=== PATIENT | male | born 1990 | race African-American/Black ===

== ENCOUNTER 2022-05-27 09:20 | Inpatient (IN) | payer MEDICAID, OTHER ==
[2022-05-27 09:36] VITALS: RESP 18
--- NOTE | 2022-05-27 10:12 | ED ---
Psych HPI - General Source: patient Mode of arrival: ambulatory <Afia Servin - Last Filed: 05/27/22 17:03> <Dexter Negrete - Last Filed: 05/27/22 18:40> - General Chief Complaint: Psychiatric Symptoms Stated Complaint: Mental health Time Seen by Provider: 05/27/22 09:48 - History of Present Illness Initial Comments: Patient is a 32-year-old -[place]er male presenting to the emergency room accompanied by his uncle with concerns for abnormal behavior and further evaluation. He reports that he hears a buzzing sensation in his ears but denies any auditory or visual hallucinations. He denies any who homicidal or suicidal thoughts. Family at bedside reports that he has been having with himself as if he was on a cell phone however he was not. He denies any complaints or concerns and reports that he is here for further evaluation per his family's request. He denies any chest pain, shortness of breath, abdominal pain, nausea, vomiting, lethargy, fevers or chills. He does not have any significant medical history is mental health history for bipolar disorder with anxiety but is not currently taking any prescribed medications. He does smoke marijuana regularly. (Afia Servin) - Related Data Allergies Allergy/AdvReac Type Severity Reaction Status Date / Time No Known Allergies Allergy Verified 05/27/22 18:25 Review of Systems ROS Other: All systems not noted in ROS Statement are negative. <Afia Servin - Last Filed: 05/27/22 17:03> ROS Other: All systems not noted in ROS Statement are negative. <Dexter Negrete - Last Filed: 05/27/22 18:40> ROS Statement: Those systems with pertinent positive or pertinent negative responses have been documented in the HPI. Past Medical History Past Medical History: No Reported History History of Any Multi-Drug Resistant Organisms: None Reported Additional Past Surgical History / Comment(s): tubes in ears. Past Psychological History: Anxiety, Bipolar Smoking Status: Never smoker Past Alcohol Use History: Occasional Past Drug Use History: Marijuana <Afia Servin - Last Filed: 05/27/22 17:03> General Exam Limitations: no limitations General appearance: alert, in no apparent distress Head exam: Present: atraumatic, normocephalic, normal inspection Eye exam: Present: normal appearance, PERRL, EOMI. Absent: scleral icterus, conjunctival injection, periorbital swelling ENT exam: Present: normal exam, mucous membranes moist Neck exam: Present: normal inspection, full ROM Respiratory exam: Present: normal lung sounds bilaterally. Absent: respiratory distress, wheezes, rales, rhonchi, stridor Cardiovascular Exam: Present: regular rate, normal rhythm, normal heart sounds. Absent: systolic murmur, diastolic murmur, rubs, gallop, clicks GI/Abdominal exam: Present: soft, normal bowel sounds. Absent: distended, tenderness, guarding, rebound, rigid Rectal exam: Present: deferred Extremities exam: Present: normal inspection. Absent: pedal edema, joint swelling Back exam: Present: normal inspection, full ROM Neurological exam: Present: alert Expanded Patient oriented to: Present: person, time. Absent: place Speech: Present: fluid speech Psychiatric exam: Present: agitated Expanded Focused psych exam: Present: flight of ideas Skin exam: Present: warm, dry, intact, normal color. Absent: rash <Afia Servin - Last Filed: 05/27/22 17:03> Course - Reevaluation(s) Time: 10:34 <Afia Servin - Last Filed: 05/27/22 17:03> Vital Signs 05/27/22 09:32 Temperature 98 F Pulse Rate 72 Respiratory 18 Rate Blood Pressure 161/108 O2 Sat by Pulse 99 Oximetry - Reevaluation(s) Reevaluation #1: Patient very agitated in the room hitting himself in the chest and speaking and nonsense terms. Will obtain urine drug screen and for safety patient will need to be restrained. Will give IM Ativan. (Afia Servin) Medical Decision Making <Afia Servin - Last Filed: 05/27/22 17:03> <Dexter Negrete - Last Filed: 05/27/22 18:40> - Medical Decision Making 32-year-old -[place] male presenting to the emergency room at the request for further evaluation regarding concerns of auditory hallucinations. Patient denies any AV hallucinations at this time. Denies any suicidal thoughts or homicidal thoughts. Patient's belongings removed and placed in a psychiatric counseling. Family remains at bedside. No indication for any diagnostic imaging or laboratory studies at this time will clear her from a medical standpoint he has evaluation. Initial psychiatric exam defered due to agitation and drowsiness after IM Ativan. Currently being reevaluated by EPS services with likely plan for admission to psychiatric services for paranoia and hallucinations awaiting final EPS evaluation. Report given to Dr. Negrete to follow for disposal. (Afia Servin) Patient is signed out to me pending EPS evaluation. Psychiatry evaluated the patient and determined that he does meet inpatient criteria. He will therefore be admitted to inpatient psychiatry. He is admitted in stable condition. Patient did become more agitated again, and was not responding to verbal cues. Therefore he was administered a small dose of Ativan as well as Haldol for his agitation. He did respond well to these medications. (Dextre Negrete) - Lab Data Lab Results 05/27/22 05/27/22 Range/Units 14:30 17:47 Urine Opiates Screen Not Detected (NotDetected) Ur Oxycodone Screen Not Detected (NotDetected) Urine Methadone Screen Not Detected (NotDetected) Ur Propoxyphene Screen Not Detected (NotDetected) Ur Barbiturates Screen Not Detected (NotDetected) U Tricyclic Antidepress Not Detected (NotDetected) Ur Phencyclidine Scrn Not Detected (NotDetected) Ur Amphetamines Screen Not Detected (NotDetected) U Methamphetamines Scrn Not Detected (NotDetected) U Benzodiazepines Scrn Not Detected (NotDetected) Urine Cocaine Screen Not Detected (NotDetected) U Marijuana (THC) Screen Detected H (NotDetected) Coronavirus (PCR) Not Detected (Not Detectd) Disposition <Afia Servin - Last Filed: 05/27/22 17:03> <Dexter Negrete - Last Filed: 05/27/22 18:40> Clinical Impression: Encounter for psychiatric assessment Disposition: ADMITTED IP TO THIS [facility] Condition: Stable Referrals: None,Stated [Primary Care Provider] - 1-2 days
[2022-05-27] MEDS ORDERED: LORazepam 2 MG/ML INJ IM STA ×2 (10:34→18:23)
[2022-05-27 14:56] LABS: Amphetamine Screen,Urine Not Detected (NotDetected); Barbiturate Screen,Urine Not Detected (NotDetected); Benzodiazepines Screen,Urine Not Detected (NotDetected); Cocaine Screen,Urine Not Detected (NotDetected); Methadone Screen, Urine Not Detected (NotDetected); Opiate Screen,Urine Not Detected (NotDetected); Oxycodone Screen, Urine Not Detected (NotDetected); Phencyclidine Screen,Urine Not Detected (NotDetected); Tricyclic Antidepressant,Urine Not Detected (NotDetected); Urn Cannabinoid Scrn Detected (NotDetected)
[2022-05-27] MEDS ORDERED: HALOPERIDOL LACTATE 5 MG/ML 1 ML VIAL IM STA (18:23)
[2022-05-27] MEDS ORDERED: HALOPERIDOL LACTATE 5 MG/ML 1 ML VIAL IM PRN (19:49)
[2022-05-27] MEDS ORDERED: MAG HYDROX/AL HYDROX/SIMETH 355 ML BOTTLE PO PRN (19:49)
[2022-05-27] MEDS ORDERED: ACETAMINOPHEN TAB 325 MG TAB PO PRN (19:49)
[2022-05-27] MEDS ORDERED: MAGNESIUM HYDROXIDE 2,400 MG/10 ML CUP PO PRN (19:49)
[2022-05-27] MEDS ORDERED: haloperidoL 5 MG TAB PO STA (20:33)
[2022-05-27] MEDS ORDERED: LORazepam 1 MG TAB PO STA (20:33)
[2022-05-28] MEDS ORDERED: diphenhydrAMINE 50 MG CAP PO STA (04:05)
[2022-05-28] MEDS: LORazepam 1 MG TAB PO PRN ×3 (04:41→23:56)
--- NOTE | 2022-05-28 06:21 | P.PN ---
Progress Note - Text Progress Note Date: 05/28/22 Patient is psychotic and appropriate for evaluation at this time please send for some physician once patient is more stable
[2022-05-28 07:15] LABS: Appearance,Urine Clear (Clear); Bilirubin,Urine Negative (Negative); Blood,Urine Negative (Negative); Color,Urine Colorless; Glucose,Urine (UA) Negative (Negative); Ketones,Urine Negative (Negative); Leukocyte Esterase,Urine Negative (Negative); Nitrite,Urine Negative (Negative); PH, Urine 6.5 (5.0-8.0); Protein,Urine Negative (Negative); Specific Gravity,Urine 1.001 (1.001-1.035); Urobilinogen,Urine <2.0 mg/dL (<2.0)
[2022-05-28 10:04] LABS: Basophils # (A) 0.1 k/uL (0-0.2); Basophils % (A) 1 %; Eosinophils # (A) 0.6 k/uL (0-0.7); Eosinophils % (A) 12 %; HCT 48.4 % (39.0-53.0); HGB 15.3 gm/dL (13.0-17.5); Hypochromasia Slight; Lymphocytes # (A) 1.6 k/uL (1.0-4.8); Lymphocytes % (A) 31 %; MCH 22.9 pg (25.0-35.0); MCHC 31.5 g/dL (31.0-37.0); MCV 72.7 fL (80.0-100.0); Mean Platelet Volume 8.2; Microcytosis Slight; Monocytes # (A) 0.4 k/uL (0-1.0); Monocytes % (A) 7 %; Neutrophils # (A) 2.4 k/uL (1.3-7.7); Neutrophils % (A) 47 %; Platelet Count 243 k/uL (150-450); RBC 6.66 m/uL (4.30-5.90); RDW 14.9 % (11.5-15.5); WBC 5.1 k/uL (3.8-10.6)
[2022-05-28 10:18] LABS: ALT 58 U/L (4-49); AST 40 U/L (17-59); African American GFR (CKD) >90 (>60 ml/min/1.73 sqM); Alkaline Phosphatase 82 U/L (38-126); Anion Gap 11 mmol/L; Blood Urea Nitrogen 11 mg/dL (9-20); Calcium 10.2 mg/dL (8.4-10.2); Carbon Dioxide 23 mmol/L (22-30); Chloride 104 mmol/L (98-107); Glucose 111 mg/dL (74-99); Non-African American GFR(CKD) 85 (>60 ml/min/1.73 sqM); Potassium 3.9 mmol/L (3.5-5.1); Sodium 138 mmol/L (137-145); Total Bilirubin 1.8 mg/dL (0.2-1.3); Total Protein 8.4 g/dL (6.3-8.2)
[2022-05-28] MEDS: haloperidoL 5 MG TAB PO PRN ×3 (15:49→23:56)
[2022-05-28 17:17] LABS: Chol/HDL Ratio 3.05 Ratio; LDL Cholesterol,Calculated 123.6 mg/dL (0.0-131.0); VLDL Calculation 13.62 mg/dL (5.00-40.00)
--- NOTE | 2022-05-28 17:45 | P.HP ---
Psychiatric H&P - . H&P Date: 05/28/22 History & Physical: IDENTIFYING DATA: Patient is a 32 year old homeless, unemployed male with reported history of bipolar disorder who is staying with his father. HPI: Per EPS report, "Pt was brought to the er by his family presenting with a/t hallucinations. He also appeared to be responding to internal stimuli. This policy writer sales tried to assess the pt was he was noncooperative. He was given 2 mg of ativan IM and fell asleep. Pt slept several hours and was reassessed. Pt appeared to be more calm and cooperative hoowever did still present with psychosis. Pt stated he smokes pot all the time and thinks he was slipped something in his mj. Pt was tangential bizaar and grandiose at times. He has a pod cast and talks to everyone in the world. He travels the world and is able to speak 4 different languages. He denies doing any other drugs. Pt states he grew up in a racist area and he became hard because of it. Pt is agreeable to be admitted and agreed to take medications. However then tated he did not want ot take medications so pt was pet/certed." Patient arrived to the unit and was overtly psychotic, attending to internal stimuli, aggressively staring others down. He was given Haldol 5 mg po x 1 and Ativan 2 mg po x 1 last night with benefit. So far today he has required Ativan 1 mg po x 2, Haldol 5 mg po x 1, and Benadryl 50 mg po x 1 for psychosis and anxiety. On my assessment, he presents with calm demeanor but is overtly psychotic with pressured speech. His thought process consists of flight of ideas and is disorganized. He reports he was "hearing music and Devil, controlled by the [employer], went to college in '09, asked if it's real or not, was told not, everything I read is a lie, if you know the symbols you can tell the truth about what it is... My head got fucked up with some shit with facebook and groups... I had two different facebook accounts...I do have an Ipad got that from [employer] I cracked [employer] screen on that... also have accounts with [employer]..." Patient denies any suicidal or homicidal ideation, intent or plan. He denies hearing voices "never in my life" and denies visual hallucinations, however appears to be attending to internal stimuli. He reports sleeping 4-5 hours per night. Patient admits to smoking marijuana daily. He denies alcohol use. He denies tobacco use. He reports his outpatient medications include Zyprexa and Depakote but he has not been taking them in a while. He does not recall the doses. He reports he had an intake appointment scheduled at [facility] on [address] for 05/27/22 but he missed it and it has been rescheduled for June 2022. PAST PSYCHIATRIC HISTORY: Patient states that he is diagnosed with bipolar disorder. Psychiatric medications: Zyprexa, Depakote, has not been taking in a while. Psychiatric hospitalizations: 3-4 times, [place], [place] (formerly [facility]) Psychiatric outpatient follow-up: He has an intake scheduled with [facility] for 05/27/22, but missed it and it has been rescheduled for June. Patient denies any history of suicide attempts in the past. PMH: Past Medical History: No Reported History History of Any Multi-Drug Resistant Organisms: None Reported Additional Past Surgical History / Comment(s): tubes in ears. Past Psychological History: Anxiety, Bipolar Smoking Status: Never smoker Past Alcohol Use History: Occasional Past Drug Use History: Marijuana ALLERGIES: as per EMR CHEMICAL DEPENDENCY HISTORY: as per HPI FAMILY PSYCHIATRIC/SUBSTANCE USE HISTORY: "I don't know" SOCIAL HISTORY: Patient states he is unemployed and homeless, currently staying with his father in [facility]. He gets his medications filled at [facility] on [address] in [place]. MENTAL STATUS EXAM: General Appearance: Patient appears to be stated age is alert, fair hygiene and grooming. Behavior: Patient is seated without any agitated behavior. Speech: Patient's speech is pressured. Mood/Affect: Patient reports their mood is ok, affect is blunted with odd staring. Suicidality/Homicidality: Patient denies having any homicidal ideation intent or plan. Denies any suicidal ideations intent or plan. Perceptions: Patient denies any visual hallucinations and denies any auditory hallucinations, but he is overtly responding to internal stimuli. Though content/process: There is evidence of delusional thought content (see HPI) and thought process consists of flight of ideas. Memory and concentration: AOX3, grossly intact for the purposes of this session. Judgment and insight: poor STRENGTHS/WEAKNESSES: Strength is that patient is resilient. Weakness is that patient has been noncompliant with medications and is homeless. INTELLECT: Average IMPRESSIONS: Bipolar I disorder, current episode manic with psychotic features Rule Schizoaffective disorder, bipolar type Cannabis use disorder PLAN: -Patient is admitted under involuntary petition/cert status to [facility] for stabilization of psychiatric symptoms and safety. Patient has signed adult voluntary form and medication consent and is placed in patient's chart. -Medications: Start patient on Zyprexa 10 mg QHS for psychosis/mood stabilization. Start Depakote ER 1000 mg QHS for mood stabilization. Confirm home doses of medication with [facility] on [address] when pharmacy reopens tomorrow. -Ativan and Haldol PRN for agitation/aggression -Patient was counselled on substance abuse -Patient was informed of the risks, benefits and side effects of the medication and patient verbally consented to taking the medications. Patient signed med consent form and was placed in chart. -Internal Medicine consult to perform medical evaluation and physical. -NRT - not needed, nonsmoker -SW on board for discharge planning. Encourage patient to participate in groups to work on coping skills. Allergies Allergy/AdvReac Type Severity Reaction Status Date / Time No Known Allergies Allergy Verified 05/28/22 01:31 Vital Signs Temp 97.5 F L 05/28/22 05:41 Pulse 96 05/28/22 05:41 Resp 18 05/28/22 05:41 BP 139/56 05/28/22 05:41 Pulse Ox 99 05/27/22 20:26 FiO2 Intake & Output 05/27/22 05/28/22 05/28/22 18:59 06:59 18:59 Weight 100.698 kg 101.3 kg 100.7 kg Laboratory Last Values WBC 5.1 k/uL (3.8-10.6) 05/28/22 09:36 RBC 6.66 m/uL (4.30-5.90) H 05/28/22 09:36 Hgb 15.3 gm/dL (13.0-17.5) 05/28/22 09:36 Hct 48.4 % (39.0-53.0) 05/28/22 09:36 MCV 72.7 fL (80.0-100.0) L 05/28/22 09:36 MCH 22.9 pg (25.0-35.0) L 05/28/22 09:36 MCHC 31.5 g/dL (31.0-37.0) 05/28/22 09:36 RDW 14.9 % (11.5-15.5) 05/28/22 09:36 Plt Count 243 k/uL (150-450) 05/28/22 09:36 MPV 8.2 05/28/22 09:36 Neutrophils % 47 % 05/28/22 09:36 Lymphocytes % 31 % 05/28/22 09:36 Monocytes % 7 % 05/28/22 09:36 Eosinophils % 12 % 05/28/22 09:36 Basophils % 1 % 05/28/22 09:36 Neutrophils # 2.4 k/uL (1.3-7.7) 05/28/22 09:36 Lymphocytes # 1.6 k/uL (1.0-4.8) 05/28/22 09:36 Monocytes # 0.4 k/uL (0-1.0) 05/28/22 09:36 Eosinophils # 0.6 k/uL (0-0.7) 05/28/22 09:36 Basophils # 0.1 k/uL (0-0.2) 05/28/22 09:36 Hypochromasia Slight 05/28/22 09:36 Microcytosis Slight 05/28/22 09:36 Sodium 138 mmol/L (137-145) 05/28/22 09:36 Potassium 3.9 mmol/L (3.5-5.1) 05/28/22 09:36 Chloride 104 mmol/L (98-107) 05/28/22 09:36 Carbon Dioxide 23 mmol/L (22-30) 05/28/22 09:36 Anion Gap 11 mmol/L 05/28/22 09:36 BUN 11 mg/dL (9-20) 05/28/22 09:36 Creatinine 1.14 mg/dL (0.66-1.25) 05/28/22 09:36 Est GFR (CKD-EPI)AfAm >90 (>60 ml/min/1.73 sqM) 05/28/22 09:36 Est GFR (CKD-EPI)NonAf 85 (>60 ml/min/1.73 sqM) 05/28/22 09:36 Glucose 111 mg/dL (74-99) H 05/28/22 09:36 Calcium 10.2 mg/dL (8.4-10.2) 05/28/22 09:36 Total Bilirubin 1.8 mg/dL (0.2-1.3) H 05/28/22 09:36 AST 40 U/L (17-59) 05/28/22 09:36 ALT 58 U/L (4-49) H 05/28/22 09:36 Alkaline Phosphatase 82 U/L (38-126) 05/28/22 09:36 Total Protein 8.4 g/dL (6.3-8.2) H 05/28/22 09:36 Albumin 5.0 g/dL (3.5-5.0) 05/28/22 09:36 TSH 1.040 mIU/L (0.465-4.680) 05/28/22 09:36 Urine Color Colorless 05/28/22 05:55 Urine Appearance Clear (Clear) 05/28/22 05:55 Urine pH 6.5 (5.0-8.0) 05/28/22 05:55 Ur Specific Hanson 1.001 (1.001-1.035) 05/28/22 05:55 Urine Protein Negative (Negative) 05/28/22 05:55 Urine Glucose (UA) Negative (Negative) 05/28/22 05:55 Urine Ketones Negative (Negative) 05/28/22 05:55 Urine Blood Negative (Negative) 05/28/22 05:55 Urine Nitrite Negative (Negative) 05/28/22 05:55 Urine Bilirubin Negative (Negative) 05/28/22 05:55 Urine Urobilinogen <2.0 mg/dL (<2.0) 05/28/22 05:55 Ur Leukocyte Esterase Negative (Negative) 05/28/22 05:55 Urine Opiates Screen Not Detected (NotDetected) 05/27/22 14:30 Ur Oxycodone Screen Not Detected (NotDetected) 05/27/22 14:30 Urine Methadone Screen Not Detected (NotDetected) 05/27/22 14:30 Ur Propoxyphene Screen Not Detected (NotDetected) 05/27/22 14:30 Ur Barbiturates Screen Not Detected (NotDetected) 05/27/22 14:30 U Tricyclic Antidepress Not Detected (NotDetected) 05/27/22 14:30 Ur Phencyclidine Scrn Not Detected (NotDetected) 05/27/22 14:30 Ur Amphetamines Screen Not Detected (NotDetected) 05/27/22 14:30 U Methamphetamines Scrn Not Detected (NotDetected) 05/27/22 14:30 U Benzodiazepines Scrn Not Detected (NotDetected) 05/27/22 14:30 Urine Cocaine Screen Not Detected (NotDetected) 05/27/22 14:30 U Marijuana (THC) Screen Detected (NotDetected) H 05/27/22 14:30 Coronavirus (PCR) Not Detected (Not Detectd) 05/27/22 17:47 05/28/22 17:10
[2022-05-28] MEDS: DIVALPROEX ER 500 MG TAB.ER.24H PO SCH (20:01)
[2022-05-28] MEDS: OLANZapine 10 MG TAB PO SCH (20:02)
[2022-05-29] MEDS ORDERED: LORazepam 1 MG TAB PO ONE (00:10)
--- NOTE | 2022-05-29 13:05 | P.PN ---
Progress Note - Text Progress Note Date: 05/29/22 Interval History: Patient was seen lying in his bed today and was directable and agreeable to sp brent with junior underwriter in the office. Patient was fairly concrete during conversation however was appropriate. He states that he was having a "psychotic episode" before coming into the hospital. He was fairly superficial with the junior underwriter today however was directable. He claims that he is feeling bored on the unit and was focused on discharge. He states that he got evicted from his home and has not been able to get in touch with his parents yet. He claims that he does not know where he'll go either stay with an uncle or one of his cousins in the area, he also mentioned a plan to possibly move to [place]. He is denying any depression at this time or anxiety, states that he slept fairly last night. At this time patient denies any suicidal or homical ideations, intent or plan. Patient denies any auditory, visual hallucinations and denies any paranoia or delusions. Patient denies any side effects from the medications and has been compliant with meds. Mental Status Exam: General Appearance: Patient appears to be stated age is alert, fair hygiene and grooming. Tall, appropriate. Behavior: Patient is seated without any agitated behavior. Tends to cooperate. Speech: Patient's speech is pressured. Bapchule and monotone. Mood/Affect: Patient reports their mood is ok, denying any depression, affect is blunted Suicidality/Homicidality: Patient denies having any homicidal ideation intent or plan. Denies any suicidal ideations intent or plan. Perceptions: Patient denies any visual hallucinations and denies any auditory hallucinations Though content/process: Patient is not endorsing any flight of ideas, racing thoughts or any delusions at this time. Mild paranoia. Focused on discharge. Memory and concentration: AOX3, grossly intact for the purposes of this session. Judgment and insight: Improving mildly IMPRESSIONS: Schizoaffective disorder, bipolar type Cannabis use disorder Plan: -Patient continues to meet criteria for inpatient psychiatric admission for symptom stabilization and safety. Patient has not signed adult voluntary form and medication consent and was placed in patient's chart. -Medications: Zyprexa 10 mg QHS for psychosis/mood stabilization, Depakote ER 1000 mg QHS for mood stabilization. -When necessary Ativan and Haldol for agitation/aggression. -NRT - not needed, nonsmoker -SW on board for discharge planning. Encouraged the patient to participate in milieu. Rig Welder spoke with marriage and family social worker about discharge planning, will attempt to reach out to patient's parents or other options where he can be discharged to. Likely discharge either tomorrow versus the day after.
[2022-05-29] MEDS: LORazepam 0.5 MG TAB PO PRN (15:50)
[2022-05-29] MEDS: haloperidoL 5 MG TAB PO PRN (15:50)
[2022-05-29] MEDS: OLANZapine 10 MG TAB PO SCH (19:44)
[2022-05-29] MEDS: DIVALPROEX ER 500 MG TAB.ER.24H PO SCH (19:44)
--- NOTE | 2022-05-29 23:30 | P.MDCNMH ---
History of Present Illness H&P Date: 05/29/22 Chief Complaint: depression 32 year old male with hypertension patient comes in for evaluation due to depressed mood, denies suidal ideation or homicidal ideation , denies any hallucination denies any medical concerns labd review showed anemia , denies any GI bleeding denies illicit drugs, smoking or heavy alcohol denies any medical concerns at this time , denies fever, chills, chest pain , SOB, abd pain , nausea or vomiting , denies any changes in bowel or urinary habits. Review of Systems Pertinent positives as noted in HPI. All other systems were reviewed and are negative Past Medical History Past Medical History: Hypertension History of Any Multi-Drug Resistant Organisms: None Reported Additional Past Surgical History / Comment(s): tubes in ears. Past Psychological History: Anxiety, Bipolar Smoking Status: Never smoker Past Alcohol Use History: Occasional Past Drug Use History: Marijuana - Past Family History family Family Medical History: Hypertension Medications and Allergies Home Medications Medication Instructions Recorded Confirmed Type No Known Home Medications 05/27/22 05/27/22 History Allergies Allergy/AdvReac Type Severity Reaction Status Date / Time No Known Allergies Allergy Verified 05/28/22 01:31 Physical Exam Vitals: Vital Signs Temp Pulse Resp BP Pulse Ox 05/29/22 06:28 97.9 F 65 18 164/109 98 Constitutional: No acute distress, Eyes: Anicteric sclerae, moist conjunctiva, Pupils equal round reactive to light ENMT: NC/AT Oropharynx clear, no erythema, or exudates Neck: Supple, no masses, or JVD No carotid bruits No thyromegaly Lungs: Clear to auscultation Clear to percussion Normal respiratory effort, no accessory muscle use Cardiovascular: Heart regular in rate and rhythm, No murmurs, gallops, or rubs No peripheral edema Abdominal: Soft Nontender, no guarding, rebound or rigidity Abdomen moving with respiration Skin: Normal temperature, tone, texture, turgor Extremities: No digital cyanosis No clubbing Pedal pulses intact and symmetrical Radial pulses intact and symmetrical No calf tenderness Psychiatric: Alert and oriented to person, place and time Neuro Muscles Strength 5/5 in all 4 extremities Sensation to light touch grossly present throughout Cranial nerves II-XII grossly intact Lymphatics: no palpable cervical or supraclavicular lymph nodes Cranial Nerve Examination - Cranial Nerves Cranial Nerve II- Optic: Intact Cranial Nerve III- Oculomotor: Intact Cranial Nerve IV- Trochlear: Intact Cranial Nerve V- Trigeminal: Intact Cranial Nerve - Abducens: Intact Cranial Nerve VII- Facial: Intact Cranial Nerve VIII- Auditory: Intact Cranial Nerve IX- Glossopharyngeal: Intact Cranial Nerve X- Vagus: Intact Cranial Nerve XI- Accessory: Intact Cranial Nerve XII- Hypoglossal: Intact Results CBC & Chem 7: 05/28/22 09:36 05/28/22 09:36 Assessment and Plan Assessment: microcytosis without anemia normal RDW most likely secondary to thalasemia minor no further intervention at this time denies GI bleeding hypertension , uncontrolled initiate on amlodipine 5 mg daily PO monitor vital signs depression management per psych thank you for consultation
[2022-05-30] MEDS: LORazepam 0.5 MG TAB PO PRN (05:33)
[2022-05-30 06:31] VITALS: TEMP 98.3
[2022-05-30] MEDS ORDERED: amLODIPine 5 MG TAB PO SCH (09:00)
[2022-05-30 09:05] VITALS: BP 157/88; PULSE 71
--- NOTE | 2022-05-30 11:45 | P.DS ---
Providers Date of admission: 05/27/22 19:42 Expected date of discharge: 05/30/22 Attending physician: Yehuda Gómez MD Consults: 05/27/22 19:49 Consult Physician Routine Consulting Provider: Troy Physician Consult Reason/Comments: medical management Do you want consulting provider notified?: Yes Primary care physician: Stated None - Discharge Diagnosis(es) (1) Schizoaffective disorder, bipolar type Current Visit: Yes Status: Acute Priority: High (2) Cannabis use disorder Current Visit: Yes Status: Acute Priority: Medium Hospital Course: Admission HPI: Admission note was completed by Dr Scales "Patient is a 32 year old homeless, unemployed male with reported history of bipolar disorder who is staying with his father. Per EPS report, "Pt was brought to the er by his family presenting with a/t hallucinations. He also appeared to be responding to internal stimuli. This ad copy writer tried to assess the pt was he was noncooperative. He was given 2 mg of ativan IM and fell asleep. Pt slept several hours and was reassessed. Pt appeared to be more calm and cooperative hoowever did still present with psychosis. Pt stated he smokes pot all the time and thinks he was slipped something in his mj. Pt was tangential bizaar and grandiose at times. He has a pod cast and talks to everyone in the world. He travels the world and is able to speak 4 different languages. He denies doing any other drugs. Pt states he grew up in a racist area and he became hard because of it. Pt is agreeable to be admitted and agreed to take medications. However then tated he did not want ot take medications so pt was pet/certed." Patient arrived to the unit and was overtly psychotic, attending to internal stimuli, aggressively staring others down. He was given Haldol 5 mg po x 1 and Ativan 2 mg po x 1 last night with benefit. So far today he has required Ativan 1 mg po x 2, Haldol 5 mg po x 1, and Benadryl 50 mg po x 1 for psychosis and anxiety. On my assessment, he pre sents with calm demeanor but is overtly psychotic with pressured speech. His thought process consists of flight of ideas and is disorganized. He reports he was "hearing music and Devil, controlled by the Devil [employer], went to college in , asked if it's real or not, was told not, everything I read is a lie, if you know the symbols you can tell the truth about what it is... My head got fucked up with some shit with facebook and groups... I had two different facebook accounts...I do have an Ipad got that from [employer] I cracked [employer] screen on that... also have accounts with [employer]..." Patient denies any suicidal or homicidal ideation, intent or plan. He denies hearing voices "never in my life" and denies visual hallucinations, however appears to be attending to internal stimuli. He reports sleeping 4-5 hours per night. Patient admits to smoking marijuana daily. He denies alcohol use. He denies tobacco use. He reports his outpatient medications include Zyprexa and Depakote but he has not been taking them in a while. He does not recall the doses. He reports he had an intake appointment scheduled at [facility] on [address] for 05/27/22 but he missed it and it has been rescheduled for June 2022." Hospital course: Upon admission to the unit patient was directable and agreeable to commence treatment and signed adult voluntary form. Patient got along well with other patients on the unit and followed unit protocol. Patient was compliant with the medications and denied any side effects throughout hospital course. Patient was started on Zyprexa increased to a dose of 10 mg daily at bedtime for psychosis/insomnia/mood stabilization, Depakote 1000 mg daily at bedtime for mood stabilization. Patient spoke of his stressors and engaged in therapy both group and individual. Patient was also seen by medical team for history and physical exam. Throughout the course of the hospitalization patient gradually improved with regards to mood, anxiety, psychosis/mood stabilization, sleep and returned back to their baseline level of functioning. On the day of discharge patient denied any suicidal or homicidal ideations intent or plan denied any auditory or visual hallucinations. Patient endorsed wanting to live for his health and future. The patient denied any access to guns or weapons. Patient denied any paranoia and did not endorse any delusions. Patient does have a sign ificant history of substance abuse and was counseled on abstaining from all substances including alcohol and marijuana. Patient elected to do outpatient substance use treatment program through [facility]. Senior Commercial Loan Officer spoke with patient about the importance of cutting back on marijuana and how it is likely the culprit for aggravating his psychiatric symptoms. Patient was also counseled on the medications and need for regular compliance and was encouraged to follow-up with their outpatient appointment for mental health and also for primary care. Prior to discharge a family meeting will be arranged by licensed social worker to answer any questions and ensure safety upon discharge. Mental status exam: General Appearance: Patient appears to be tall,stated age is alert, pleasant, and cooperative. Patient is in no acute distress and has improved hygiene and grooming Behavior: Patient is calmly seated without any agitated behavior. Speech: Patient's speech is fluent and nonpressured. concete, monotone. Mood/Affect: Patient reports their mood is "alright", affect is congruent and constricted. Suicidality/Homicidality: Patient denies having any suicidal or homicidal ideation intent or plan. Perceptions: Patient denies any auditory or visual hallucinations. Though content/process: There is no evidence of any delusional thought content and thought process is linear and goal-directed. concrete. Memory and concentration: AOX3, grossly intact for the purposes of this session. Can spell "WORLD" backwards correctly. Judgment and insight: chronically poor, however has improved with guarded prognosis Impression: Schizoaffective disorder bipolar type Cannabis use disorder Plan: -Continue with discharge today as patient has improved and stabilized psychiatrically and is not currently an imminent threat to himself and/or others. Patient will remain at chronically elevated risk for harm to self and/or others due to his substance abuse. -Continue medications: Zyprexa 10 mg daily at bedtime for psychosis/mood stabilization, Depakote ER 1000 mg daily at bedtime for mood stabilization. -Patient was counseled on the need for medication compliance and appropriate follow-up at mental health and also primary care for medical issues. Patient verbalized understanding and agreed. -Social work to arrange for and conduct family meeting to ensure safety upon discharge and answer any questions/concerns. Social work also to arrange for patients follow up appointments with [facility] for psychiatric care along with follow up with primary care provider. -Patient counseled on abstaining from recreational drugs and marijuana and alcohol. Was informed/educated on the adverse effects on their physical and mental health. Patient verbally agreed and understood. -Patient was instructed to return to the hospital or seek immediate medical care if their psychiatric or medical symptoms do worsen or reoccur. Allergies Allergy/AdvReac Type Severity Reaction Status Date / Time No Known Allergies Allergy Verified 05/28/22 01:31 Laboratory Results WBC 5.1 k/uL (3.8-10.6) 05/28/22 09:36 RBC 6.66 m/uL (4.30-5.90) H 05/28/22 09:36 Hgb 15.3 gm/dL (13.0-17.5) 05/28/22 09:36 Hct 48.4 % (39.0-53.0) 05/28/22 09:36 MCV 72.7 fL (80.0-100.0) L 05/28/22 09:36 MCH 22.9 pg (25.0-35.0) L 05/28/22 09:36 MCHC 31.5 g/dL (31.0-37.0) 05/28/22 09:36 RDW 14.9 % (11.5-15.5) 05/28/22 09:36 Plt Count 243 k/uL (150-450) 05/28/22 09:36 MPV 8.2 05/28/22 09:36 Neutrophils % 47 % 05/28/22 09:36 Lymphocytes % 31 % 05/28/22 09:36 Monocytes % 7 % 05/28/22 09:36 Eosinophils % 12 % 05/28/22 09:36 Basophils % 1 % 05/28/22 09:36 Neutrophils # 2.4 k/uL (1.3-7.7) 05/28/22 09:36 Lymphocytes # 1.6 k/uL (1.0-4.8) 05/28/22 09:36 Monocytes # 0.4 k/uL (0-1.0) 05/28/22 09:36 Eosinophils # 0.6 k/uL (0-0.7) 05/28/22 09:36 Basophils # 0.1 k/uL (0-0.2) 05/28/22 09:36 Hypochromasia Slight 05/28/22 09:36 Microcytosis Slight 05/28/22 09:36 Sodium 138 mmol/L (137-145) 05/28/22 09:36 Potassium 3.9 mmol/L (3.5-5.1) 05/28/22 09:36 Chloride 104 mmol/L (98-107) 05/28/22 09:36 Carbon Dioxide 23 mmol/L (22-30) 05/28/22 09:36 Anion Gap 11 mmol/L 05/28/22 09:36 BUN 11 mg/dL (9-20) 05/28/22 09:36 Creatinine 1.14 mg/dL (0.66-1.25) 05/28/22 09:36 Est GFR (CKD-EPI)AfAm >90 (>60 ml/min/1.73 sqM) 05/28/22 09:36 Est GFR (CKD-EPI)NonAf 85 (>60 ml/min/1.73 sqM) 05/28/22 09:36 Glucose 111 mg/dL (74-99) H 05/28/22 09:[address] Glu mg/dL 120 05/28/22 09:36 Hemoglobin A1c 5.8 % (0.0-6.0) 05/28/22 09:36 Calcium 10.2 mg/dL (8.4-10.2) 05/28/22 09:36 Total Bilirubin 1.8 mg/dL (0.2-1.3) H 05/28/22 09:36 AST 40 U/L (17-59) 05/28/22 09:36 ALT 58 U/L (4-49) H 05/28/22 09:36 Alkaline Phosphatase 82 U/L (38-126) 05/28/22 09:36 Total Protein 8.4 g/dL (6.3-8.2) H 05/28/22 09:36 Albumin 5.0 g/dL (3.5-5.0) 05/28/22 09:36 Triglycerides 68.10 mg/dL (0.00-149.00) 05/28/22 09:36 Cholesterol 204.00 mg/dL (0.00-200.00) H 05/28/22 09:36 LDL Cholesterol, Calc 123.6 mg/dL (0.0-131.0) 05/28/22 09:36 VLDL Cholesterol, Calc 13.62 mg/dL (5.00-40.00) 05/28/22 09:36 HDL Cholesterol 66.80 mg/dL (40.00-60.00) H 05/28/22 09:36 Cholesterol/HDL Ratio 3.05 Ratio 05/28/22 09:36 TSH 1.040 mIU/L (0.465-4.680) 05/28/22 09:36 Urine Color Colorless 05/28/22 05:55 Urine Appearance Clear (Clear) 05/28/22 05:55 Urine pH 6.5 (5.0-8.0) 05/28/22 05:55 Ur Specific [place] 1.001 (1.001-1.035) 05/28/22 05:55 Urine Protein Negative (Negative) 05/28/22 05:55 Urine Glucose (UA) Negative (Negative) 05/28/22 05:55 Urine Ketones Negative (Negative) 05/28/22 05:55 Urine Blood Negative (Negative) 05/28/22 05:55 Urine Nitrite Negative (Negative) 05/28/22 05:55 Urine Bilirubin Negative (Negative) 05/28/22 05:55 Urine Urobilinogen <2.0 mg/dL (<2.0) 05/28/22 05:55 Ur Leukocyte Esterase Negative (Negative) 05/28/22 05:55 Urine Opiates Screen Not Detected (NotDetected) 05/27/22 14:30 Ur Oxycodone Screen Not Detected (NotDetected) 05/27/22 14:30 Urine Methadone Screen Not Detected (NotDetected) 05/27/22 14:30 Ur Propoxyphene Screen Not Detected (NotDetected) 05/27/22 14:30 Ur Barbiturates Screen Not Detected (NotDetected) 05/27/22 14:30 Valproic Acid 77.4 ug/mL 05/30/22 06:59 U Tricyclic Antidepress Not Detected (NotDetected) 05/27/22 14:30 Ur Phencyclidine Scrn Not Detected (NotDetected) 05/27/22 14:30 Ur Amphetamines Screen Not Detected (NotDetected) 05/27/22 14:30 U Methamphetamines Scrn Not Detected (NotDetected) 05/27/22 14:30 U Benzodiazepines Scrn Not Detected (NotDetected) 05/27/22 14:30 Urine Cocaine Screen Not Detected (NotDetected) 05/27/22 14:30 U Marijuana (THC) Screen Detected (NotDetected) H 05/27/22 14:30 Coronavirus (PCR) Not Detected (Not Detectd) 05/27/22 17:47 Vital Signs Temp 98.3 F 05/30/22 06:00 Pulse 71 05/30/22 09:05 Resp 18 05/30/22 06:00 BP 157/88 05/30/22 09:05 Pulse Ox 95 05/30/22 06:00 FiO2 Patient Condition at Discharge: Stable Plan - Discharge Summary Discharge Rx Participant: Yes New Discharge Prescriptions: New Divalproex ER [Depakote ER] 1,000 mg PO HS 30 Days tab Acetaminophen Tab [Tylenol] 650 mg PO Q4HR PRN tab PRN Reason: Pain/Discomfort amLODIPine [Norvasc] 5 mg PO DAILY 30 Days tab OLANZapine [ZyPREXA] 10 mg PO HS 30 Days tab Discharge Medication List Acetaminophen Tab [Tylenol] 650 mg PO Q4HR PRN tab 05/30/22 [Rx] Divalproex ER [Depakote ER] 1,000 mg PO HS 30 Days tab 05/30/22 [Rx] OLANZapine [ZyPREXA] 10 mg PO HS 30 Days tab 05/30/22 [Rx] amLODIPine [Norvasc] 5 mg PO DAILY 30 Days tab 05/30/22 [Rx] Follow up Appointment(s)/Referral(s): [facility] [Outside] - 05/31/22 3:30 pm (with farmworker field crop) [facility] Patient Instructions/Handouts: Depression (DC) Activity/Diet/Wound Care/Special Instructions: Activity and diet as tolerated. Avoid the use of street drugs and alcohol. Take all medications as prescribed. When you are in need of refills on your medications please contact your medical provider and/or outpatient psychiatrist to have this done. Please go to scheduled outpatient appointment for aftercare treatment. If symptoms return or become worse, call the crisis line at and/or go to the nearest emergency room for evaluation Discharge Disposition: HOME SELF-CARE
== END 2022-05-30 13:55 | disposition home or self-care (01) | DRG 885 ==
LOC: EC 09:20 → 3MHU 19:42
PROVIDERS: ADMIT Psychiatry & Neurology Psychiatry; ATTEND Psychiatry & Neurology Psychiatry
DX: F25.0 Schizoaffective disorder, bipolar type (principal); R45.851 Suicidal ideations; Z20.822 Contact with and (suspected) exposure to COVID-19; F12.10 Cannabis abuse, uncomplicated; D64.9 Anemia, unspecified; F41.9 Anxiety disorder, unspecified; G47.00 Insomnia, unspecified; Z56.0 Unemployment, unspecified; Z59.00 Homelessness unspecified; Z79.899 Other long term (current) drug therapy; Z71.51 Drug abuse counseling and surveillance of drug abuser
CPT/HCPCS: 80053; 80061; 80164; 80306; 81003; 82075; 83036; 84443; 85025; 87635; 96372; 99285